=== PATIENT | female | born 1960 | race American Indian/Alaskan Native ===

== ENCOUNTER 2018-03-24 12:34 | Inpatient (IN) | payer OTHER ==
--- NOTE | 2018-03-24 12:44 | Emergency Department Report ---
ED Neuro Deficit HPI - General Stated Complaint: RIGHT ARM NUMB Time Seen by Provider: 03/24/18 12:35 Source: patient, EMS - History of Present Illness Initial Comments: Patient is 57 years old female with history of hypertension and TIA. Patient presented to the ER for evaluation of right hand numbness that started approximately 1 hour ago. Patient stated that she also had a previous episode of difficulty speaking and slurred speech that completely resolved. Patient denied any focal weakness and he stated that her symptoms is completely gone now. - Related Data Home Medications: Home Medications Medication Instructions Recorded Confirmed Last Taken Atorvastatin Calcium [Lipitor] 40 mg PO DAILY 03/24/18 03/24/18 Unknown Insulin Detemir [Levemir VIAL] 40 units SUB-Q QHS 03/24/18 03/24/18 Unknown Insulin Lispro [HumaLOG VIAL] 7 units SUB-Q TID 03/24/18 03/24/18 03/24/18 Losartan/Hydrochlorothiazide 1 each PO DAILY 03/24/18 03/24/18 03/24/18 [Losartan-Hctz 100-25 mg Tab] Allergies/Adverse Reactions: Allergies Allergy/AdvReac Type Severity Reaction Status Date / Time aspirin Allergy Vomiting Verified 06/02/13 22:45 ED Review of Systems ROS: Stated complaint: RIGHT ARM NUMB Other details as noted in HPI Comment: All other systems reviewed and negative Constitutional: denies: chills, fever Respiratory: denies: cough, shortness of breath, SOB with exertion Cardiovascular: denies: chest pain, palpitations Gastrointestinal: denies: abdominal pain, nausea Musculoskeletal: denies: back pain ED Past Medical Hx - Past Medical History Hx Hypertension: Yes - Surgical History Additional Surgical History: tubal ligation fibroid - Social History Smoking Status: Never Smoker Substance Use Type: None - Medications Home Medications: Home Medications Medication Instructions Recorded Confirmed Last Taken Type Atorvastatin Calcium [Lipitor] 40 mg PO DAILY 03/24/18 03/24/18 Unknown History Insulin Detemir [Levemir VIAL] 40 units SUB-Q QHS 03/24/18 03/24/18 Unknown History Insulin Lispro [HumaLOG VIAL] 7 units SUB-Q TID 03/24/18 03/24/18 03/24/18 History Losartan/Hydrochlorothiazide 1 each PO DAILY 03/24/18 03/24/18 03/24/18 History [Losartan-Hctz 100-25 mg Tab] ED Neuro Physical Exam - General Limitations: No Limitations General appearance: alert, in no apparent distress Suspected Stroke: Yes - Head Head exam: Present: atraumatic, normocephalic - Eye Eye exam: Present: normal appearance, PERRL - ENT ENT exam: Present: normal exam, normal orophraynx, mucous membranes moist - Neck Neck exam: Present: normal inspection, full ROM. Absent: tenderness, meningismus, lymphadenopathy, thyromegaly - Respiratory Respiratory exam: Present: normal lung sounds bilaterally. Absent: respiratory distress, wheezes, rales, rhonchi, stridor, chest wall tenderness, accessory muscle use, decreased breath sounds, prolonged expiratory - Cardiovascular Cardiovascular Exam: Present: regular rate, normal rhythm, normal heart sounds - GI/Abdominal GI/Abdominal exam: Present: soft. Absent: distended, tenderness, guarding, rebound, rigid - Extremities Exam Extremities exam: Present: normal inspection, full ROM, normal capillary refill. Absent: pedal edema, calf tenderness - Back Exam Back exam: Present: normal inspection, full ROM. Absent: tenderness, CVA tenderness (R), CVA tenderness (L), muscle spasm, paraspinal tenderness, vertebral tenderness - Neurological Exam Neurological exam: Present: alert, oriented X3, CN II-XII intact, normal gait, reflexes normal - NIHSS Assessment Interval: Baseline 1a. Level of Consciousness: alert/keenly responsive 1b. LOC Questions: answers both correctly 1c. LOC Commands: performs tasks correctly 2. Best Gaze: normal 3. Visual: no visual loss 4. Facial Palsy: normal symmetrical movement 5b. Motor Arm Right: no drift 5a. Motor Arm Left: no drift 6a. Motor Leg Left: no drift 6b. Motor Leg Right: no drift 7. Limb Ataxia: absent 8. Sensory: normal 9. Best Language: no aphasia 10. Dysarthria: normal 11. Extinction/Inattention: no abnormality Total Score: 0 Stroke Severity: No Stroke Symptoms - Psychiatric Psychiatric exam: Present: normal affect, normal mood - Skin Skin exam: Present: warm, intact, normal color. Absent: cyanosis, diaphoretic, erythema, urticaria ED Course Vital Signs 03/24/18 13:09 Temperature 98.2 F Pulse Rate 74 Respiratory 14 Rate Blood Pressure 180/101 O2 Sat by Pulse 97 Oximetry - Reevaluation(s) Reevaluation #1: 03/24/18 15:00 I discussed the patient with Dr Jade from [facility], she advised patient can be admitted to [facility]. - Lab Data Result diagrams: 03/24/18 12:00 03/24/18 12:00 Lab Results 03/24/18 03/24/18 03/24/18 Range/Units 12:00 12:00 12:00 WBC 6.8 (4.5-11.0) K/mm3 RBC 5.14 H (3.65-5.03) M/mm3 Hgb 13.1 (10.1-14.3) gm/dl Hct 39.9 (30.3-42.9) % MCV 78 L (79-97) fl MCH 26 L (28-32) pg MCHC 33 (30-34) % RDW 14.1 (13.2-15.2) % Plt Count 244 (140-440) K/mm3 Lymph % (Auto) 30.5 (13.4-35.0) % [place] % (Auto) 8.1 H (0.0-7.3) % Eos % (Auto) 0.8 (0.0-4.3) % Baso % (Auto) 0.6 (0.0-1.8) % Lymph # 2.1 (1.2-5.4) K/mm3 [place] # 0.6 (0.0-0.8) K/mm3 Eos # 0.1 (0.0-0.4) K/mm3 Baso # 0.0 (0.0-0.1) K/mm3 Seg Neutrophils % 60.0 (40.0-70.0) % Seg Neutrophils # 4.1 (1.8-7.7) K/mm3 PT 12.6 (12.2-14.9) Sec. INR 0.90 (0.87-1.13) APTT 26.3 (24.2-36.6) Sec. Thrombin Time 16.8 (15.1-19.6) Sec. Sodium (137-145) mmol/L Potassium (3.6-5.0) mmol/L Chloride (98-107) mmol/L Carbon Dioxide (22-30) mmol/L Anion Gap mmol/L BUN (7-17) mg/dL Creatinine (0.7-1.2) mg/dL Estimated GFR ml/min BUN/Creatinine Ratio % Glucose (65-100) mg/dL POC Glucose (70-105) Calcium (8.4-10.2) mg/dL Total Bilirubin (0.1-1.2) mg/dL Direct Bilirubin (0-0.2) mg/dL Indirect Bilirubin mg/dL AST (5-40) units/L ALT (7-56) units/L Alkaline Phosphatase (35-129) units/L Total Creatine Kinase 119 (30-135) units/L CK-MB (CK-2) 1.9 (0.0-4.0) ng/mL CK-MB (CK-2) Rel Index 1.5 (0-4) Troponin T < 0.010 (0.00-0.029) ng/mL Total Protein (6.3-8.2) g/dL Albumin (3.9-5) g/dL Albumin/Globulin Ratio % 03/24/18 03/24/18 Range/Units 12:00 13:59 WBC (4.5-11.0) K/mm3 RBC (3.65-5.03) M/mm3 Hgb (10.1-14.3) gm/dl Hct (30.3-42.9) % MCV (79-97) fl MCH (28-32) pg MCHC (30-34) % RDW (13.2-15.2) % Plt Count (140-440) K/mm3 Lymph % (Auto) (13.4-35.0) % [place] % (Auto) (0.0-7.3) % Eos % (Auto) (0.0-4.3) % Baso % (Auto) (0.0-1.8) % Lymph # (1.2-5.4) K/mm3 [place] # (0.0-0.8) K/mm3 Eos # (0.0-0.4) K/mm3 Baso # (0.0-0.1) K/mm3 Seg Neutrophils % (40.0-70.0) % Seg Neutrophils # (1.8-7.7) K/mm3 PT (12.2-14.9) Sec. INR (0.87-1.13) APTT (24.2-36.6) Sec. Thrombin Time (15.1-19.6) Sec. Sodium 137 (137-145) mmol/L Potassium 2.8 L* (3.6-5.0) mmol/L Chloride 96.9 L (98-107) mmol/L Carbon Dioxide 28 (22-30) mmol/L Anion Gap 15 mmol/L BUN 11 (7-17) mg/dL Creatinine 0.7 (0.7-1.2) mg/dL Estimated GFR > 60 ml/min BUN/Creatinine Ratio 16 % Glucose 246 H (65-100) mg/dL POC Glucose 240 H (70-105) Calcium 9.4 (8.4-10.2) mg/dL Total Bilirubin 0.40 (0.1-1.2) mg/dL Direct Bilirubin < 0.2 (0-0.2) mg/dL Indirect Bilirubin 0.2 mg/dL AST 14 (5-40) units/L ALT 16 (7-56) units/L Alkaline Phosphatase 102 (35-129) units/L Total Creatine Kinase (30-135) units/L CK-MB (CK-2) (0.0-4.0) ng/mL CK-MB (CK-2) Rel Index (0-4) Troponin T (0.00-0.029) ng/mL Total Protein 7.2 (6.3-8.2) g/dL Albumin 4.0 (3.9-5) g/dL Albumin/Globulin Ratio 1.3 % - EKG Data -: EKG Interpreted by Me EKG shows normal: sinus rhythm Rate: normal Interpretation: no acute changes - Medical Decision Making I discussed the patient with Dr Clark, he agreed to admit the patient to medical service. Critical Care Time: Yes Critical care time in (mins) excluding proc time.: 30 Critical care attestation.: If time is entered above; I have spent that time in minutes in the direct care of this critically ill patient, excluding procedure time. ED Disposition Clinical Impression: TIA (transient ischemic attack), Hypokalemia Disposition: OP ADMIT IP TO THIS HOSP Is pt being admited?: Yes Condition: Stable Referrals: PRIMARY CARE, [Primary Care Provider] - 3-5 Days
[2018-03-24 13:39] LABS: Basophils % (Auto) 0.6 % (0.0-1.8); Eosinophils % (Auto) 0.8 % (0.0-4.3); Hematocrit 39.9 % (30.3-42.9); Hemoglobin 13.1 gm/dl (10.1-14.3); Lymphocytes % (Auto) 30.5 % (13.4-35.0); Mean Corpuscular HGB Conc 33 % (30-34); Mean Corpuscular Volume 78 fl (79-97); Monocytes % (Auto) 8.1 % (0.0-7.3); Platelet Count 244 K/mm3 (140-440); Red Blood Count 5.14 M/mm3 (3.65-5.03); Red Cell Distribution Width 14.1 % (13.2-15.2)
[2018-03-24 13:40] LABS: Eosinophils # (Auto) 0.1 K/mm3 (0.0-0.4); Lymphocytes # (Auto) 2.1 K/mm3 (1.2-5.4); Monocytes # (Auto) 0.6 K/mm3 (0.0-0.8)
[2018-03-24 13:41] LABS: Mean Corpuscular Hemoglobin 26 pg (28-32)
[2018-03-24 13:50] LABS: INR 0.9 (0.87-1.13)
[2018-03-24 13:51] LABS: Partial Thromboplastin Time 26.3 Sec. (24.2-36.6); Thrombin Time 16.8 Sec. (15.1-19.6)
[2018-03-24 13:55] LABS: Alanine Aminotransferase 16 units/L (7-56); BUN/Creatinine Ratio 16; Blood Urea Nitrogen 11 mg/dL (7-17); Calcium 9.4 mg/dL (8.4-10.2); Hemolysis Index 6
[2018-03-24 13:59] LABS: Creatine Kinase MB 1.9 ng/mL (0.0-4.0)
[2018-03-24 14:18] LABS: Bilirubin,Direct < 0.2 mg/dL (0-0.2)
--- NOTE | 2018-03-24 14:26 | Cat Scan Report ---
CT HEAD WITHOUT CONTRAST: HISTORY: Stroke symptoms. TECHNIQUE: Sequential 2.5mm CT images. COMPARISON: none. FINDINGS: Cerebral Parenchyma: A 1.3 cm chronic focal infarct is identified in the right frontal white matter. A 1.2 cm chronic focal infarct is identified in the left frontal white matter. The remaining brain parenchyma has normal attenuation there is normal carr-white interface. Cerebellum: Within normal limits. Brainstem: Within normal limits. Ventricles: Normal. Sella: Normal. Extra-axial spaces: Normal. Basal Cisterns: Normal. Intracranial Hemorrhage: None. Midline Shift: None. Calvarium: Normal. Sinuses: Normal. Mastoid Air Cells: Normal. Visualized Orbits: Normal. IMPRESSION: Chronic focal infarcts as described. No acute intracranial process is identified.
[2018-03-24] MEDS ORDERED: K-DUR PO ONE (14:28)
--- NOTE | 2018-03-24 14:50 | History and Physical Report ---
History of Present Illness Chief complaint: I felt weak on my right side, and i couldnt talk History of present illness: 57 YO Female with HTN, TIA, DM, HLD, Obesity presents to ED for evaluation. Pt states that she experienced sudden onset of weakness in her right hand, as well as dysarthria, and dizziness while at work today. EMS notified and upon arrival the patient found to have weakness. Pt transported to [facility] for further care and evaluation. Pt seen and evaluated in ED and found to have symptoms of CVA. Pt denies fever, chills, CP, Palpitations, NVD, Syncope, Trauma, vertigo, loss of bowel/bladder continence, productive cough, skin rash, or recent ill contacts. Pt admitted to telemetry and initiated on CVA protocol. Past History Past Medical History: diabetes, hypertension, hyperlipidemia, other (obesity) Past Surgical History: Other (Tubal ligation) Social history: single Family history: diabetes, hypertension Medications and Allergies Allergies Allergy/AdvReac Type Severity Reaction Status Date / Time aspirin Allergy Vomiting Verified 06/02/13 22:45 Home Medications Medication Instructions Recorded Confirmed Last Taken Type Atorvastatin Calcium [Lipitor] 40 mg PO DAILY 03/24/18 03/24/18 Unknown History Insulin Detemir [Levemir VIAL] 40 units SUB-Q QHS 03/24/18 03/24/18 Unknown History Insulin Lispro [HumaLOG VIAL] 7 units SUB-Q TID 03/24/18 03/24/18 03/24/18 History Losartan/Hydrochlorothiazide 1 each PO DAILY 03/24/18 03/24/18 03/24/18 History [Losartan-Hctz 100-25 mg Tab] Active Meds: Active Medications Potassium Chloride (Kcl 10meq/100ml) 10 meq in 100 mls @ 100 mls/hr IV Q1H MILAGROS Stop: 03/24/18 16:59 Review of Systems Constitutional: no weight loss, no weight gain, no fever, no chills Ears, nose, mouth and throat: no ear pain, no ear discharge, no tinnitis, no decreased hearing, no nose pain, no nasal congestion Breasts: no change in shape, no swelling, no mass Cardiovascular: no chest pain, no orthopnea, no palpitations, no rapid/ irregular heart beat, no edema, no syncope Respiratory: no cough, no cough with sputum, no excessive sputum, no hemoptysis , no shortness of breath Gastrointestinal: no nausea, no vomiting, no diarrhea, no constipation Genitourinary Female: no pelvic pain, no flank pain, no menorrhagia, no dysuria , no urinary frequency, no urgency Rectal: no pain, no incontinence, no bleeding Musculoskeletal: no neck stiffness, no neck pain, no shooting arm pain, no arm numbness/tingling, no low back pain Integumentary: no rash, no pruritis, no redness, no sores, no wounds Neurological: no paralysis, no weakness, no parathesias, no numbness, no tingling, no seizures, no syncope Psychiatric: no anxiety, no memory loss, no sleep disturbances, no insomnia, no hypersomnia, no change in appetite Endocrine: no cold intolerance, no heat intolerance, no polyphagia, no excessive thirst, no polydipsia, no polyuria, no nocturia Hematologic/Lymphatic: no easy bruising, no easy bleeding, no lymphadenopathy, no lymphedema Allergic/Immunologic: no urticaria, no allergic rhinitis, no wheezing, no persistent infections, no anaphylaxis, no angioedema Exam - Constitutional Vitals: Temp Pulse Resp BP Pulse Ox 98.2 F 74 14 180/101 97 03/24/18 13:03/24/18 13:03/24/18 13:03/24/18 13:03/24/18 13:09 General appearance: Present: mild distress - EENT Eyes: Present: PERRL ENT: hearing intact, clear oral mucosa - Neck Neck: Present: supple, normal ROM - Respiratory Respiratory effort: normal Respiratory: bilateral: CTA - Cardiovascular Heart Sounds: Present: S1 & S2. Absent: rub, click - Extremities Extremities: pulses symmetrical, No edema Peripheral Pulses: within normal limits - Abdominal General gastrointestinal: Present: soft, non-tender, non-distended, normal bowel sounds Female genitourinary: Present: normal - Integumentary Integumentary: Present: clear, dry - Musculoskeletal Musculoskeletal: right sided weakness - Psychiatric Psychiatric: appropriate mood/affect, intact judgment & insight - Neurologic Neurologic: CNII-XII intact, moves all extremities Results - Labs CBC & Chem 7: 03/24/18 12:00 03/24/18 12:00 Labs: Abnormal lab results 03/24/18 03/24/18 03/24/18 Range/Units 12:00 12:00 13:59 RBC 5.14 H (3.65-5.03) M/mm3 MCV 78 L (79-97) fl MCH 26 L (28-32) pg [place] % (Auto) 8.1 H (0.0-7.3) % Potassium 2.8 L* (3.6-5.0) mmol/L Chloride 96.9 L (98-107) mmol/L Glucose 246 H (65-100) mg/dL POC Glucose 240 H (70-105) Assessment and Plan - Patient Problems (1) CVA (cerebral vascular accident) Current Visit: Yes Status: Acute Qualifiers: Precerebral and cerebral artery: middle cerebral artery Laterality of affected vessel: left Plan to address problem: Stroke Protocol: CT Head, MRI Brain, MRA Brain, Echo, Carotid doppler, eeg, antiplatelet therapy, lipid panel, statin therapy, (2) HTN (hypertension) Current Visit: Yes Status: Acute Qualifiers: Hypertension type: essential hypertension Qualified Code(s): I10 - Essential (primary) hypertension Plan to address problem: monitor bp q shift, permissive hypertension overnight. (3) Diabetes Current Visit: Yes Status: Acute Plan to address problem: ADA diet, insulin, accu check (4) DVT prophylaxis Current Visit: Yes Status: Acute Plan to address problem: SCD to BLE while in bed
[2018-03-24] MEDS ORDERED: NACL 0.9% 500 ML 500 ML ONE ×2 (15:05→16:09)
[2018-03-24] MEDS ORDERED: REGLAN PO PRN (15:07)
[2018-03-24] MEDS ORDERED: ZOFRAN IV PRN (15:07)
[2018-03-24] MEDS ORDERED: SODIUM CHLORIDE FLUSH SYRINGE 10 ML IV PRN (15:07)
[2018-03-24] MEDS ORDERED: MILK OF MAGNESIA PO PRN (15:07)
[2018-03-24] MEDS ORDERED: TYLENOL PO PRN (15:07)
[2018-03-24] MEDS ORDERED: PHENERGAN PR PRN (15:07)
[2018-03-24] MEDS ORDERED: PROVENTIL IH PRN (15:07)
[2018-03-24] MEDS ORDERED: DULCOLAX PR PRN (15:07)
[2018-03-24] MEDS: KCL 10MEQ/100ML 10 MEQ/100 ML BAG IV SCH ×2 (15:18→18:11)
[2018-03-24] MEDS ORDERED: HumuLIN R ONE (15:28)
[2018-03-24] MEDS ORDERED: HumuLIN R IV ONE (15:44)
[2018-03-24] MEDS ORDERED: NACL 0.9% 500 ML 500 ML IV ONE (16:09)
[2018-03-24] MEDS: HumaLOG SUB-Q SCH (18:11)
--- NOTE | 2018-03-24 20:43 | Consultation ---
History of Present Illness Consult date: 03/24/18 Requesting physician: ARMIDA MANUEL Reason for Consult: TIA History of present illness: 57 YO rt. handed Female with HTN, TIA, DM, HLD, Obesity presented to ED for evaluation. Pt states that she experienced sudden onset of weakness and numbness in her right hand, as well as difficulty speaking while at work. She works at [employer], and at first noted numbness in her rt. hand follwed by weakness to the point she could not grasp a piece of paper. She felt like her rt. arm was heavy and overall weakness. Co-workers got a wheelchair for her and called EMS. The pt. states that she had a TIA in 2017, characterized by numbness of the left face. On that admission she was found to be diabetic and has been on insulin. With this spell she denies headache, nausea, diaphoresis, palpitations, blurred or double vision. She is followed by a neurologist who has her on 2 baby aspirins per day and atorvastatin. A CT scan in the ER revealed small chronic strokes in lt. and rt. frontal white matter. No acute changes. Past History Past Medical History: diabetes, hypertension, hyperlipidemia, other (obesity) Past Surgical History: , Other (Tubal ligation) Social history: single. denies: smoking, alcohol abuse Family history: diabetes, hypertension Medications and Allergies Allergies Allergy/AdvReac Type Severity Reaction Status Date / Time aspirin Allergy Vomiting Verified 06/02/13 22:45 Home Medications Medication Instructions Recorded Confirmed Last Taken Type Atorvastatin Calcium [Lipitor] 40 mg PO DAILY 03/24/18 03/24/18 Unknown History Insulin Detemir [Levemir VIAL] 40 units SUB-Q QHS 03/24/18 03/24/18 Unknown History Insulin Lispro [HumaLOG VIAL] 7 units SUB-Q TID 03/24/18 03/24/18 03/24/18 History Losartan/Hydrochlorothiazide 1 each PO DAILY 03/24/18 03/24/18 03/24/18 History [Losartan-Hctz 100-25 mg Tab] Active Meds: Active Medications Acetaminophen (Tylenol) 650 mg PO Q4H PRN PRN Reason: Pain, Mild (1-3) Albuterol (Proventil) 2.5 mg IH Q3HRT PRN PRN Reason: Shortness Of Breath Atorvastatin Calcium (Lipitor) 40 mg PO HS [facility] Bisacodyl (Dulcolax) 10 mg ID QDAY PRN PRN Reason: Constipation Insulin Glargine (Lantus) 40 units SUB-Q QHS [facility] Insulin Human Lispro (Humalog) 7 unit SUB-Q TIDWM [facility] Last Admin: 03/24/18 18:11 Dose: Not Given Magnesium Hydroxide (Milk Of Magnesia) 30 ml PO Q4H PRN PRN Reason: Constipation Metoclopramide HCl (Reglan) 10 mg PO Q6H PRN PRN Reason: Nausea And Vomiting Ondansetron HCl (Zofran) 4 mg IV Q8H PRN PRN Reason: Nausea And Vomiting Promethazine HCl (Phenergan) 25 mg ID Q6H PRN PRN Reason: Nausea And Vomiting Sodium Chloride (Sodium Chloride Flush Syringe 10 Ml) 10 ml IV PRN PRN PRN Reason: LINE FLUSH Physical Examination - Vital Signs Vital Signs: Vital Signs Pulse Resp BP Pulse Ox 78 21 180/101 98 03/24/18 13:01 03/24/18 13:01 03/24/18 13:01 03/24/18 13:01 - Physical Exam Narrative exam: resting comfortably in bed. HEENT - no inflammation or lesions. neck - supple. Chest - clear Heart - nl S-1, S-2. reg. rate. Abdomen - soft, nontender. Extremities - no CCE Neurological - speech fluent, language intact. CN's - EOMs full, face - mild rt. facial weakness. tongue midline. V-1 thru V-3 decreased sensation rt. face. hearing intact. Motor - 5/5 throughout Reflexes - +1 on rt., trace on left. Sensation - decreased touch left arm and face. Cerebellar - intact. gait normal. - Assessment Assessment Interval: Baseline - Level of Consciousness 1a. Level of Consciousness: alert/keenly responsive - LOC Questions 1b. LOC Questions: answers both correctly - LOC Command 1c. LOC Commands: performs tasks correctly - Best Gaze 2. Best Gaze: normal - Visual 3. Visual: no visual loss - Facial Palsy 4. Facial Palsy: normal symmetrical movement - Motor Arm 5b. Motor Arm Right: no drift - Motor Leg 6a. Motor Leg Left: no drift - Limb Ataxia 7. Limb Ataxia: absent - Sensory 8. Sensory: normal - Best Language 9. Best Language: no aphasia - Dysarthria 10. Dysarthria: normal - Extinction and Inattention 11. Extinction/Inattention: no abnormality Results - Laboratory Findings CBC and BMP: 03/24/18 12:00 03/24/18 12:00 Abnormal Lab Findings: Abnormal Labs 03/24/18 03/24/18 03/24/18 12:00 12:00 13:59 RBC 5.14 H MCV 78 L MCH 26 L [place] % (Auto) 8.1 H Potassium 2.8 L* Chloride 96.9 L Glucose 246 H POC Glucose 240 H Assessment and Plan 57 yr. old female with multiple risk factors presents with TIA. Most symptoms have resolved, still numbness in right arm and face. Was taking ASA and atorvastatin at home. Blood pressure is still very high. Plan - Continue same meds. Control BP. Add Plavix 75 mg q day
[2018-03-24] MEDS: APRESOLINE IV PRN (21:06)
[2018-03-24] MEDS ORDERED: INSULIN DETEMIR 40 UNIT SUB-Q SCH (22:00)
[2018-03-24] MEDS: LANTUS SUB-Q SCH (22:14)
[2018-03-25] MEDS: APRESOLINE IV PRN ×2 (04:38→12:47)
[2018-03-25 05:05] LABS: Chol/HDL Ratio 2.31 %
[2018-03-25] MEDS ORDERED: APRESOLINE IV STA (06:28)
[2018-03-25] MEDS: HumaLOG SUB-Q SCH ×6 (06:55→22:08)
--- NOTE | 2018-03-25 13:05 | Magnetic Resonance Report ---
MRA HEAD WITHOUT CONTRAST HISTORY: CVA. [id number] imaging with MIP reformations of the [place] is submitted. The arteries appear widely patent and free of hemodynamically significant stenosis, aneurysm or dissection. IMPRESSION: Unremarkable MRA head.
--- NOTE | 2018-03-25 13:05 | Magnetic Resonance Report ---
MRI OF THE BRAIN WITHOUT CONTRAST: HISTORY: Stroke PROCEDURE: Multiplanar, multisequence MR imaging of the brain without IV contrast was performed. FINDINGS: A 1.2 cm focus of diffusion restriction is identified in the left encarnacion radiata on image 21. No other areas of diffusion restriction are identified. The remaining brain parenchyma demonstrates normal signal on all sequences. The carr-white interface is well defined. A 1.4 cm chronic infarct is identified in the right encarnacion radiata on T2 image 17. A 1.2 cm chronic focal infarct is identified in the left parietal white matter on image 17. No evidence for hemorrhage, mass, or extra axial fluid collection. The midline structures are central. The basal cisterns are patent. Normal ventricular size. The orbital cavities and sella turcica demonstrate no abnormality. The visualized paranasal sinuses and mastoid air cells are well aerated. IMPRESSION: 1.2 cm area subacute ischemia in the left encarnacion radiata. Focal chronic infarcts in the right encarnacion radiata and left parietal white matter as described.
--- NOTE | 2018-03-25 14:46 | Progress Note ---
Assessment and Plan - Patient Problems (1) Acute CVA (cerebrovascular accident) Current Visit: Yes Status: Acute Plan to address problem: Rt upper extremity weakness has improvrd to a large extent MRI positive for acute infarct in Lt encarnacion radiata (2) Hypokalemia Current Visit: Yes Status: Acute Plan to address problem: Supplemented Check K level (3) IDDM (insulin dependent diabetes mellitus) Current Visit: Yes Status: Chronic Plan to address problem: Cont Insulin and coverage Check A1c (4) HTN (hypertension) Current Visit: Yes Status: Chronic Qualifiers: Hypertension type: essential hypertension Qualified Code(s): I10 - Essential (primary) hypertension Plan to address problem: Cont antihypertensives (5) Hyperlipidemia Current Visit: Yes Status: Chronic Qualifiers: Hyperlipidemia type: mixed hyperlipidemia Qualified Code(s): E78.2 - Mixed hyperlipidemia Plan to address problem: Cont statins (6) DVT prophylaxis Current Visit: Yes Status: Acute Plan to address problem: Lovenox GI prophylaxis Subjective Date of service: 03/25/18 Principal diagnosis: Acute CVA with Rt Hemiparesis Interval history: Rt Upper extremity Weakness persists Rt Facial droop persists Objective - Constitutional Vitals: Vital Signs - 12hr 03/25/18 03/25/18 03/25/18 04:01 04:38 06:45 Temperature 98.3 F Pulse Rate 81 96 H 91 H Respiratory 18 Rate Blood Pressure 179/96 179/96 197/103 Blood Pressure [Left] O2 Sat by Pulse 97 Oximetry 03/25/18 03/25/18 03/25/18 08:43 11:19 12:50 Temperature 98.3 F Pulse Rate 85 85 97 H Respiratory 20 Rate Blood Pressure 158/79 Blood Pressure 171/92 [Left] O2 Sat by Pulse 97 Oximetry 03/25/18 03/25/18 13:14 13:31 Temperature Pulse Rate Respiratory Rate Blood Pressure Blood Pressure 171/92 [Left] O2 Sat by Pulse 97 Oximetry General appearance: Present: no acute distress, well-nourished - EENT Eyes: PERRL, EOM intact ENT: hearing intact, clear oral mucosa Ears: bilateral: normal - Neck Neck: supple, normal ROM - Respiratory Respiratory effort: normal Respiratory: bilateral: CTA - Breasts Breasts: normal - Cardiovascular Heart rate: 78 Rhythm: regular Heart Sounds: Present: S1 & S2. Absent: gallop, rub Extremities: pulses intact, No edema, normal color, Full ROM - Gastrointestinal General gastrointestinal: Present: soft, non-tender, non-distended, normal bowel sounds - Genitourinary Female genitourinary: normal - Integumentary Integumentary: clear, warm, dry - Musculoskeletal Musculoskeletal: 1, strength equal bilaterally - Neurologic Neurologic: focal deficits (Rt Upper Extremity 3/5 power Rt facial UMN weakness) - Psychiatric Psychiatric: memory intact, appropriate mood/affect, intact judgment & insight - Labs CBC & Chem 7: 03/24/18 12:00 03/24/18 12:00 Labs: Abnormal lab results 03/25/18 Range/Units 02:52 HDL Cholesterol 66 H (40-59) mg/dL
--- NOTE | 2018-03-25 15:50 | Progress Note ---
Assessment and Plan 57 yr. old female with multiple risk factors presented with TIA. Most symptoms had resolved, still numbness in right arm and face. Completed stroke on MRI - left encarnacion radiata. Was taking ASA and atorvastatin at home. Plan - Continue same meds. Control BP. Add Plavix 75 mg q day Subjective Date of service: 03/25/18 Principal diagnosis: Acute CVA with Rt Hemiparesis Interval history: Pt. has developed recurrent rt. arm paresis, facial droop and dysarthric speech. MRI reveals acute stroke in left encarnacion radiata. Objective - Exam Narrative Exam: resting comfortably in bed. HEENT - no inflammation or lesions. neck - supple. Chest - clear Heart - nl S-1, S-2. reg. rate. Abdomen - soft, nontender. Extremities - no CCE Neurological - very dysarthric CN's - EOMs full, face - rt. facial weakness. tongue midline. V-1 thru V-3 decreased sensation rt. face. hearing intact. Motor - 5/5 throughout except rt. upper extremity - 2/5 all groups Reflexes - +1 on rt., trace on left. Sensation - decreased touch left arm and face. Cerebellar - intact. gait normal. - Vital Sign Vital Signs - 12hr 03/25/18 03/25/18 03/25/18 04:01 04:38 06:45 Temperature 98.3 F Pulse Rate 81 96 H 91 H Respiratory 18 Rate Blood Pressure 179/96 179/96 197/103 Blood Pressure [Left] O2 Sat by Pulse 97 Oximetry 03/25/18 03/25/18 03/25/18 08:43 11:19 12:50 Temperature 98.3 F Pulse Rate 85 85 97 H Respiratory 20 Rate Blood Pressure 158/79 Blood Pressure 171/92 [Left] O2 Sat by Pulse 97 Oximetry 03/25/18 03/25/18 13:14 13:31 Temperature Pulse Rate Respiratory Rate Blood Pressure Blood Pressure 171/92 [Left] O2 Sat by Pulse 97 Oximetry - Laboratory Findings CBC and BMP: 03/24/18 12:00 03/24/18 12:00 Abnormal Lab Findings: Abnormal Labs 03/24/18 03/24/18 03/24/18 12:00 12:00 13:59 RBC 5.14 H MCV 78 L MCH 26 L [place] % (Auto) 8.1 H Potassium 2.8 L* Chloride 96.9 L Glucose 246 H POC Glucose 240 H HDL Cholesterol 03/25/18 02:52 RBC MCV MCH [place] % (Auto) Potassium Chloride Glucose POC Glucose HDL Cholesterol 66 H
[2018-03-25] MEDS: ECOTRIN PO SCH (16:14)
[2018-03-25] MEDS: COZAAR PO SCH (16:14)
[2018-03-25] MEDS: HCTZ PO SCH (16:15)
[2018-03-25] MEDS: PLAVIX PO SCH (16:15)
[2018-03-25] MEDS: LOVENOX SUB-Q SCH (22:42)
[2018-03-25] MEDS: LANTUS SUB-Q SCH (22:42)
[2018-03-26] MEDS: ECOTRIN PO SCH (10:25)
[2018-03-26] MEDS: PLAVIX PO SCH (10:25)
[2018-03-26] MEDS: COZAAR PO SCH (10:25)
[2018-03-26] MEDS: HCTZ PO SCH (10:25)
[2018-03-26] MEDS: LOVENOX SUB-Q SCH (10:26)
[2018-03-26] MEDS: HumaLOG SUB-Q SCH ×6 (10:27→17:14)
[2018-03-26] MEDS ORDERED: K-DUR PO SCH (12:00)
--- NOTE | 2018-03-26 12:05 | Discharge Summary ---
Providers - Providers Date of Admission: 03/24/18 15:08 Date of discharge: 03/26/18 Attending physician: VICENTE POWELL 03/24/18 15:08 Occupational Therapy Evaluate and Treat [CONS] Routine Comment: Reason For Exam: Neuro deficits Physical Therapy Evaluation and Treat [CONS] Routine Comment: Reason For Exam: Neuro deficits Speech Therapy Evaluation and Treat [CONS] Routine Reason For Exam: swallow eval 03/24/18 16:31 Consult to Physician [CONS] Routine Comment: Consulting Provider: DILCIA PÉREZ Physician Instructions: Reason For Exam: cva Primary care physician: [place] Hospitalization Condition: Stable Hospital course: - Patient Problems (1) Acute CVA (cerebrovascular accident) Current Visit: Yes Status: Acute Plan to address problem: Rt upper extremity weakness has improvrd to a large extent MRI positive for acute infarct in Lt encarnacion radiata [{atient improving.Has residual weakness in Rt upper extremity.Able to walk.Will discharge with home health Updated [place] physician. patient initiated on plavix and ASA (2) Hypokalemia Current Visit: Yes Status: Acute Plan to address problem: Supplemented (3) IDDM (insulin dependent diabetes mellitus) Current Visit: Yes Status: Chronic Plan to address problem: Cont Insulin and coverage (4) HTN (hypertension) Current Visit: Yes Status: Chronic Qualifiers: Hypertension type: essential hypertension Qualified Code(s): I10 - Essential (primary) hypertension Plan to address problem: Cont antihypertensives (5) Hyperlipidemia Current Visit: Yes Status: Chronic Qualifiers: Hyperlipidemia type: mixed hyperlipidemia Qualified Code(s): E78.2 - Mixed hyperlipidemia Plan to address problem: Cont statins Disposition: DC-01 TO HOME OR SELFCARE - Discharge Diagnoses (1) Acute CVA (cerebrovascular accident) Status: Acute (2) Hypokalemia Status: Acute (3) IDDM (insulin dependent diabetes mellitus) Status: Chronic (4) HTN (hypertension) Status: Chronic Qualifiers: Hypertension type: essential hypertension Qualified Code(s): I10 - Essential (primary) hypertension (5) Hyperlipidemia Status: Chronic Qualifiers: Hyperlipidemia type: mixed hyperlipidemia Qualified Code(s): E78.2 - Mixed hyperlipidemia (6) DVT prophylaxis Status: Acute Core Measure Documentation - Palliative Care Palliative Care/ Comfort Measures: Not Applicable - Core Measures Any of the following diagnoses?: stroke - Stroke Discharge Requirements Statin for LDL = or >70 mg/dl on DC: Yes Anticoag for atrial fib/atrial flutter: Not Applicable Antithrombotic for ischemic stroke: Yes Exam - Constitutional Vitals: Temp Pulse Resp BP Pulse Ox 98.3 F 89 20 149/84 98 03/26/18 07:49 03/26/18 07:49 03/26/18 07:49 03/26/18 07:49 03/26/18 07:49 General appearance: Present: no acute distress, well-nourished - EENT Eyes: Present: PERRL ENT: hearing intact, clear oral mucosa - Neck Neck: Present: supple, normal ROM - Respiratory Respiratory effort: normal Respiratory: bilateral: CTA - Cardiovascular Heart rate: 76 Rhythm: regular (76) Heart Sounds: Present: S1 & S2. Absent: rub, click - Extremities Extremities: no ischemia, pulses symmetrical, No edema Peripheral Pulses: within normal limits - Abdominal General gastrointestinal: Present: soft, non-tender, non-distended, normal bowel sounds Female genitourinary: Present: normal - Integumentary Integumentary: Present: clear, warm, dry - Musculoskeletal Musculoskeletal: strength equal bilaterally, right sided weakness (Rt upper ext weakness and Rt facial weakness) - Psychiatric Psychiatric: appropriate mood/affect, intact judgment & insight - Neurologic Neurologic: CNII-XII intact, moves all extremities Plan Activity: no restrictions Weight Bearing Status: Weight Bear as Tolerated Diet: low fat, low cholesterol, low salt, diabetic Follow up with: PRIMARY CARE, [Primary Care Provider] - 3-5 Days
[2018-03-26 15:40] VITALS: BP 123/73
== END 2018-03-26 18:40 | disposition home or self-care (01) | DRG 65 ==
LOC: ED 12:34 → 4A 15:08
PROVIDERS: ADMIT Internal Medicine; ATTEND Internal Medicine
DX: I63.9 Cerebral infarction, unspecified (principal); G81.91 Hemiplegia, unspecified affecting right dominant side; I10 Essential (primary) hypertension; E87.6 Hypokalemia; E78.2 Mixed hyperlipidemia; E11.9 Type 2 diabetes mellitus without complications; Z86.73 Personal history of transient ischemic attack (TIA), and cerebral infarction without residual deficits; Z98.51 Tubal ligation status; Z88.6 Allergy status to analgesic agent; Z82.49 Family history of ischemic heart disease and other diseases of the circulatory system; Z83.3 Family history of diabetes mellitus; Z79.4 Long term (current) use of insulin; Z79.899 Other long term (current) drug therapy
CPT/HCPCS: 36415; 70450; 70544; 70551; 80048; 80061; 80074; 82550; 82553; 82962; 84132; 84484; 85025; 85610; 85670; 85730; 93005; 93010; 93306; 93880; 95819; 96365; 96366; 96375; A9270-GY; J0360; J1650; J1815; J2405; J3480; J7040

== ENCOUNTER 2019-08-18 11:25 | Outpatient (CLI) | payer OTHER ==
--- NOTE | 2019-08-18 13:31 | XRay Report ---
BILATERAL SHOULDERS 3 VIEWS INDICATION: Bilateral shoulder pain. COMPARISON: None. IMPRESSION: Borderline bone mineralization. Mild acromioclavicular osteoarthritis is identified bila terally. No evidence for fracture, ligamentous injury or bone lesion. The soft tissues are unremarka ble. LUMBOSACRAL SPINE 5 VIEWS INDICATION: Back pain. COMPARISON: None. IMPRESSION: There is normal height and alignment of the lumbar vertebral bodies. No compression defo rmity or bone lesion. Disc space height is preserved throughout the lumbar region. Moderate to sever e hypertrophic facet arthropathy is identified at L3-4, L4-5 and L5-S1. The oblique images suggest mi ld to moderate neural foraminal narrowing at these levels. There are moderate symmetric osteoarthriti c changes at the SI joints. BILATERAL KNEES 3 VIEWS INDICATION: Bilateral knee pain. COMPARISON: None. IMPRESSION: Mild medial compartment degenerative changes, mild tibial spine spurring and minimal ret ropatellar spurring are identified in both knees. No evidence for fracture, large osteochondral defe ct or significant joint effusion. Signer Name: Jassi Olson Jr, MD Signed: 08/18/2019 1:27 PM Workstation Name: [id number]
--- NOTE | 2019-08-18 13:57 | Ultrasound Report ---
ULTRASOUND SOFT TISSUE HEAD AND NECK HISTORY: Edema unspecified, neck mass TECHNIQUE: Grayscale ultrasound with color Doppler imaging. FINDINGS: Targeted ultrasound was performed at the site of a palpable mass in the left side of the neck. The im ages demonstrate a slightly complex solid mass arising from the left thyroid lobe measuring 5.9 x 4.2 x 3.4 cm. There is minimal internal cystic change and perfusion on color Doppler. No calcifications. IMPRESSION: Left thyroid lobe mass as described. Signer Name: Jassi Olson Jr, MD Signed: 08/18/2019 1:52 PM Workstation Name: [id number]
== END 2019-08-18 11:26 | disposition home or self-care (01) ==
LOC: US 11:25
PROVIDERS: ATTEND Internal Medicine Hematology & Oncology
DX: E04.8 Other specified nontoxic goiter (principal); R22.1 Localized swelling, mass and lump, neck
CPT/HCPCS: 72110; 76536

== ENCOUNTER 2019-10-05 08:16 | Day surgery (SDC) | payer OTHER ==
--- NOTE | 2019-10-05 10:29 | Short Stay Summary ---
Short Stay Documentation Date of service: 10/05/19 - History Principal diagnosis: left thyroid mass - Allergies and Medications Current Medications: Allergies aspirin Allergy (Verified 06/02/13 22:45) Vomiting Home Medications Medication Instructions Recorded Confirmed Last Taken Type Insulin Detemir [Levemir VIAL] 40 units SUB-Q QHS 03/24/18 10/05/19 10/04/19 History 40 units ALBUTEROL NEB's [Proventil 0.083% 2.5 mg IH Q3HRT PRN nebu 03/26/18 10/05/19 08/19/19 Rx NEBS] 2.5mg Acetaminophen [Acetaminophen TAB] 650 mg PO Q4H PRN tablet 03/26/18 10/05/19 04/04/19 Rx 650 mg AtorvaSTATin [Lipitor] 40 mg PO HS #30 tablet 03/26/18 10/05/19 10/04/19 Rx 40 mg Clopidogrel [Plavix] 75 mg PO QDAY #30 tablet 03/26/18 10/05/19 10/01/19 Rx 75 mg Diclofenac 1% [Diclofenac 1% 1 applic INTRADERMA PRN PRN 10/05/19 10/05/19 10/03/19 History topical gel] 1 appl Losartan Potassium 100 mg PO DAILY 10/05/19 10/05/19 10/04/19 History 100 mg Spironolactone [Aldactone] 50 mg PO DAILY 10/05/19 10/05/19 10/04/19 History 50 mg amLODIPine 5 mg PO DAILY 10/05/19 10/05/19 10/04/19 History 5 mg hydroCHLOROthiazide [HCTZ] 25 mg PO DAILY 10/05/19 10/05/19 10/04/19 History 25 mg - Physical exam General appearance: no acute distress HEENT: Atraumatic, PERRLA, Mucous membr. moist/pink - Brief post op/procedure progress note Date of procedure: 10/05/19 Pre-op diagnosis: left thyroid mass Post-op diagnosis: same Procedure: US thyroid biopsy and fna Anesthesia: local Findings: 3-4cm slightly complex left thyroid mass Surgeon: MARLI DILLARD Estimated blood loss: none Pathology: list (fna x 2, rotex biopsy) Specimen disposition: to lab Condition: stable - Hospital course Hospital course: uneventful - Disposition Condition at discharge: Good Disposition: DC-01 TO HOME OR SELFCARE Short Stay Discharge Plan Follow up with: AAYUSH SCOTT DO [Primary Care Provider] - 7 Days
[2019-10-05 10:50] VITALS: BP 138/86
--- NOTE | 2019-10-05 12:08 | Ultrasound Report ---
ULTRASOUND BIOPSY THYROID HISTORY: Left thyroid mass DESCRIPTION OF PROCEDURE: Informed consent was obtained. Sterile technique was utilized. 1% lidocaine for skin anesthesia. Using ultrasound guidance, 2 fine-needle aspirations and one rotex biopsy was o btained from a 3.8 x 2.7 cm left thyroid lobe mass with mild internal cystic change and scattered pun ctate calcifications. The samples were deemed adequate by the pathologist on site. No complications. IMPRESSION: Successful ultrasound-guided biopsy of the left thyroid lobe mass. Signer Name: Jassi Olson Jr, MD Signed: 10/05/2019 12:04 PM Workstation Name: [id number]
== END 2019-10-05 11:02 | disposition home or self-care (01) ==
LOC: US 08:16 → CATHLABREC 08:16 → EDSTATUS 09:00 → CATHLABREC 11:02
PROVIDERS: ATTEND Internal Medicine Hematology & Oncology
DX: E04.1 Nontoxic single thyroid nodule (principal); I10 Essential (primary) hypertension; E11.9 Type 2 diabetes mellitus without complications; E78.00 Pure hypercholesterolemia, unspecified; M19.90 Unspecified osteoarthritis, unspecified site; Z88.8 Allergy status to other drugs, medicaments and biological substances; Z79.4 Long term (current) use of insulin; Z79.899 Other long term (current) drug therapy; Z82.49 Family history of ischemic heart disease and other diseases of the circulatory system; Z83.3 Family history of diabetes mellitus; Z98.890 Other specified postprocedural states
CPT/HCPCS: 60100; 76942; 82962; 88112; 88172; 88173; 88305